=== PATIENT | male | born 1970 | race Caucasian/White ===

== ENCOUNTER 2021-05-21 05:37 | Outpatient (CLI) | payer OTHER ==
[~2021-05-21] VITALS: Ht 188 cm; Wt 93.5 kg
[2021-05-21] MEDS ORDERED: AMLO-251 PO (11:20)
== END 2021-05-21 11:27 | disposition home or self-care (01) ==
LOC: PREOP 05:37
PROVIDERS: ATTEND Surgery
DX: Z01.818 Encounter for other preprocedural examination (principal)

== ENCOUNTER 2021-06-02 09:00 | Day surgery (SDC) | payer OTHER ==
[~2021-06-02] VITALS: Ht 188 cm; Wt 93.5 kg
[2021-06-02] VITALS (7 sets, daily range): BP systolic 115–149; BP diastolic 69–99
[~2021-06-02 09:00] MED LIST: AMLO-251 PO
[2021-06-02] MEDS ORDERED: LACTATED RINGERS 1,000 ML IV ONE (09:02)
[2021-06-02] MEDS ORDERED: HURRICAINE EXT TUBE (BENZOCAINE) ONE (09:03)
[2021-06-02] MEDS ORDERED: LACTATED RINGERS 1,000 ML IV STA (09:03)
[2021-06-02] MEDS ORDERED: HURRICAINE EXT TUBE (BENZOCAINE) XX PRN (09:15)
--- NOTE | 2021-06-02 09:25 | Progress Note-Pre Operative ---
Pre-Operative Progress Note H&P Reviewed The H&P was reviewed, patient examined and no changes noted. Date Seen by Provider: Jun 02, 2021 Time Seen by Provider: 09:24 Date H&P Reviewed: Jun 02, 2021 Time H&P Reviewed: 09:24 Pre-Operative Diagnosis: Screening colonoscopy JENNYFER WALKER DO Jun 02, 2021 09:25
[2021-06-02] MEDS ORDERED: MIDAZOLAM 2 MG/2 ML (VERSED) VIAL ONE (09:29)
[2021-06-02] MEDS ORDERED: PROPOFOL INJECTION 50 ML IV ONE (09:29)
--- NOTE | 2021-06-02 09:59 | Discharge Inst-Simple/Standard ---
Discharge Inst-Standard Patient Instructions/Follow Up Plan of Care/Instructions/FU: 2 weeks Mary Activity as Tolerated: Yes Discharge Diet: Regular Diet JENNYFER WALKER DO Jun 02, 2021 09:59
--- NOTE | 2021-06-02 10:04 | Progress Note-Post Operative ---
Post-Operative Progess Note Surgeon (s)/Seed Cone Picker (s) Surgeon JENNYFER WALKER DO Seed Cone Picker: none Pre-Operative Diagnosis Screening colonoscopy Post-Operative Diagnosis Sigmoid polyps x4 Procedure & Operative Findings Date of Procedure 06/02/21 Procedure Performed/Findings Colonoscopy with cold biopsy polypectomy x4 Anesthesia Type per RAMP AND CARGO SUPERVISOR Estimated Blood Loss Estimated blood loss (mL): none Specimens/Packing Specimens Removed Sigmoid polyps x4 JENNYFER WALKER DO Jun 02, 2021 10:04
--- NOTE | 2021-06-02 11:29 | OPERATIVE REPORT ---
DATE OF SERVICE: 06/02/2021 PREOPERATIVE DIAGNOSIS: Screening colonoscopy. POSTOPERATIVE DIAGNOSIS: Colon polyps, sigmoid x4. PROCEDURE: Colonoscopy with cold biopsy polypectomy x4. SURGEON: Jennyfer Hernandez DO ANESTHESIA: Per SPOOLING OPERATOR. ESTIMATED BLOOD LOSS: None. COMPLICATIONS: None. INDICATIONS: The patient is a 51-year-old male needing screening colonoscopy. He understands risks and benefits of procedure and wishes to proceed. Consent was signed in the chart. DESCRIPTION OF PROCEDURE: The patient was taken to endoscopy suite, placed in left lateral recumbent position. Timeout was performed. Digital rectal exam was performed. No palpable polyps, masses or ulcerations. Scope was inserted in the rectum and advanced all the way to cecum with minimal difficulty. Prep was adequate. Scope was slowly retracted back. No polyps, masses or ulcerations within the cecum, ascending, transverse and descending colon. In sigmoid colon, four very small polyps were present, which a was also utilized for visualization, which cold biopsy polypectomy was performed. Scope was then slowly retracted back into the rectum, where it was also retroflexed noting no other pathology. Scope was returned to its normal position, slowly withdrawn until completely removed. The patient tolerated the procedure well without any complications, taken to recovery room in stable condition. RECOMMENDATIONS: The patient will have repeat colonoscopy in 5 years. Any issues before that be seen at that time. The patient will follow up in the office to discuss pathology results. Job ID: [id number] DocumentID: [id number] Dictated Date: 06/02/2021 10:04:40 Nuclear Reactor Engineer Date: 06/02/2021 11:28:30 Dictated By: JENNYFER HERNANDEZ DO
--- NOTE | 2021-06-02 14:50 | Anesthesia-General Post-Op ---
MAC Patient Condition Mental Status/LOC: Same as Preop Cardiovascular: Satisfactory Nausea/Vomiting: Absent Respiratory: Satisfactory Pain: Controlled Complications: Absent Post Op Complications Complications None Follow Up Care/Instructions Patient Instructions None needed. Anesthesiology Discharge Order Discharge Order Patient is doing well, no complaints, stable vital signs, no apparent adverse anesthesia problems. No complications reported per nursing. YOLANDA SIMPSON CRNA Jun 02, 2021 14:50
== END 2021-06-02 11:10 | disposition home or self-care (01) ==
LOC: ENDO 09:00
PROVIDERS: ATTEND Surgery
DX: Z12.11 Encounter for screening for malignant neoplasm of colon (principal); K63.5 Polyp of colon; K21.9 Gastro-esophageal reflux disease without esophagitis

== ENCOUNTER → 2022-05-04 | Outpatient (CLI) | payer OTHER | LOC: CARD 10:49 | PROVIDERS: ATTEND Internal Medicine Cardiovascular Disease | DX: I34.0 Nonrheumatic mitral (valve) insufficiency (principal); I25.10 Atherosclerotic heart disease of native coronary artery without angina pectoris; I11.9 Hypertensive heart disease without heart failure | CPT/HCPCS: 93306 ==

== ENCOUNTER → 2022-05-24 | Outpatient (CLI) | payer OTHER ==
[~2022-05-24] VITALS: Ht 187 cm; Wt 91.0 kg
[~2022-05-24] MED LIST changes: +REGADENOSON 0.4 MG/5 ML SYR (LEXISCAN) IV ONE
[2022-05-24] MEDS: CATHETER FLUSH 10 ML SYR IVP PRN ×2 (08:05→09:25)
[2022-05-24 09:23] VITALS: BP 144/90
--- NOTE | 2022-05-24 11:08 | Cardiology Stress Test Report ---
Stress Test Report Date of Procedure/Referring: Date of Procedure: May 24, 2022 PCP Marko Cardozo MD Admitting Physician Admitting Physician: Attending Physician: Emilee Fermin MD Indications: CP Baseline Heart Rate: 58 Baseline Blood Pressure: Blood Pressure Systolic: 144 Blood Pressure Diastolic: 90 Baseline Vitals Vital Signs Date Time Temp Pulse Resp B/P (MAP) Pulse Ox O2 Delivery O2 Flow Rate FiO2 05/24/22 09:23 53 16 144/90 (108) 98 Room Air Baseline EKG: Baseline EKG: NSR Summary After explaining the procedure to the patient, he signed a consent and then brought to the stress nuclear laboratory. Patient received 0.4 mg Lexiscan for stress test, ECG, heart rate and blood pressure were monitored continuously. Resting and stress dose of radio tracer were injected, imaging was acquired and reviewed in short axis, horizontal long axis and vertical long axis views. TID: 1.08 SSS: 3 SDS: 2 EF: 60 Patient tolerated Lexiscan well Mild reversible ischemia involving the mid to apical anterior wall Normal left ventricular size, ejection fraction 60% CC EMILEE Chu MD May 24, 2022 11:08
== END ==
LOC: CARD 07:46
PROVIDERS: ATTEND Internal Medicine Cardiovascular Disease
DX: I25.89 Other forms of chronic ischemic heart disease (principal); I10 Essential (primary) hypertension; I25.10 Atherosclerotic heart disease of native coronary artery without angina pectoris
CPT/HCPCS: 78452; 93017; A9502

== ENCOUNTER 2022-06-02 10:00 | Day surgery (SDC) | payer OTHER ==
[2022-06-02] VITALS (8 sets, daily range): BP systolic 94–134; BP diastolic 71–97
[~2022-06-02] VITALS: Ht 187 cm; Wt 94.6 kg
--- NOTE | 2022-06-02 08:38 | Diagnostic Imaging Report ---
Indication: Pre-heart catheterization. Time of Exam: 8:15 AM No prior studies are available for comparison. Findings: The heart size is normal. The pulmonary vascularity is unremarkable. The lungs are clear. No infiltrate, effusion or pneumothorax is detected. Impression: No acute cardiopulmonary process is detected. Dictated by: Dictated on workstation # [id number]
[2022-06-02 09:06] LABS: HEMATOCRIT 45 % (40-54); HEMOGLOBIN 16.3 g/dL (13.3-17.7); MEAN CORPUSCULAR HEMOGLOBIN 32 pg (25-34); MEAN CORPUSCULAR HGB CONC 37 g/dL (32-36); MEAN CORPUSCULAR VOLUME 87 fL (80-99); PLATELET COUNT 209 10^3/uL (130-400); WHITE BLOOD COUNT 6.5 10^3/uL (4.3-11.0)
[2022-06-02 09:09] LABS: BILIRUBIN,URINE NEGATIVE (NEGATIVE); CLARITY,URINE CLEAR; COLOR,URINE YELLOW; GLUCOSE, URINE (UA) NEGATIVE (NEGATIVE); KETONES,URINE NEGATIVE (NEGATIVE); LEUKOCYTE ESTERASE ,URINE NEGATIVE (NEGATIVE); NITRITE,URINE NEGATIVE (NEGATIVE); PROTEIN,URINE NEGATIVE (NEGATIVE)
--- NOTE | 2022-06-02 09:09 | Cardiac Procedure Note-CS/ASA ---
Pre-Procedure Note Pre-Op Procedure Note Date of Available H&P: May 25, 2022 Date H&P Reviewed: Jun 02, 2022 Time H&P Reviewed: 09:09 History & Physical: H&P Reviewed, Patient Examed, No changes noted Pre-Operative Diagnosis: CAD Moderate Sedation PreProcedure Time 09:09 ASA Score 3 Airway Lungs Heart ASA score ASA 1: a normal healthy patient ASA 2: a patient with a mild systemic disease (mid diabetes, controlled hypertension, obesity ASA 3: a patient with a severe systemic disease that limits activity (angina, COPD, prior Myocardial infarction) ASA 4: a patient with an incapacitating disease that is a constant threat to life (CHF, renal failure) ASA 5: a moribund patient not expected to survive 24 hrs. (ruptured aneurysm) ASA 6: a declared brain- patient whose organs are being harvested. For emergent operations, add the letter E after the classification Mallampati Classification Grade 3 Sedation Plan Analgesia, Amnesia, Plan communicated to team members, Discussed options with patient/fam, Discussed risks with patient/fam The patient is an appropriate candidate to undergo the planned procedure, sedation, and anesthesia. The patient immediately re-assessed prior to indication. EMILEE NAPIER MD Jun 02, 2022 09:09
[2022-06-02 09:19] LABS: BACTERIA,URINE TRACE /HPF; RBC,URINE RARE /HPF; SQUAMOUS EPITHELIAL CELL,UR RARE /HPF
[2022-06-02 09:23] LABS: PROTHROMBIN TIME PATIENT 13.9 SEC (12.2-14.7)
[2022-06-02 09:45] LABS: ALBUMIN 4.5 GM/DL (3.2-4.5); BILIRUBIN,TOTAL 0.5 MG/DL (0.1-1.0); CALCIUM 9.6 MG/DL (8.5-10.1); CREATININE SERUM 1.09 MG/DL (0.60-1.30)
[~2022-06-02 10:00] MED LIST changes: +AMLO-250 PO; +DIPH25TA2 PO; +HEParin (CATH LAB) 2,000 ML IV ONE; +HEParin 1000 UNIT/ML (10ML VIAL) FOR BOLUS ONE; +IBUP-2473 PO; +LIDOCAINE 1% INJ 20 ML VIAL ONE; +LOSA100T57 PO; +MIDAZOLAM 5 MG/5 ML (VERSED) VIAL ONE; +NEBI5TAB8 PO; +NITRO DRIP 25000 MCG/D5W 250 ML IV ONE; +NS IV 1000 ML 1,000 ML IV ONE; +NS IV 1000 ML 1,000 ML ONE; -REGADENOSON 0.4 MG/5 ML SYR (LEXISCAN) IV ONE; +TADA5TAB4 PO; +VERAPAMIL 5 MG/2 ML (CALAN) VIAL IV ONE; +fentaNYL INJ 100 MCG/2 ML AMP ONE
--- NOTE | 2022-06-02 10:33 | Discharge Inst-Post CATH ---
Discharge Inst-CATH/EP Problems Reviewed?: Yes Post Cardiac Cath/EP D/C Inst Follow Up/Plan Appointment with Dr. Fermin's office in 2 to 4 weeks <b>CARDIAC CATH/EP PROCEDURE DISCHARGE INSTRUCTIONS</b> ACTIVITY * Go Home directly and rest. * Limit activity of the leg (or wrist if it was used) for 7 days including aer obics, swimming, jogging, bicycling, etc. * Restrict stair-climbing for 7 days if possible, if not, climb up with your non-cath leg, then bring together on the same step. * Avoid lifting, pushing, pulling or excessive movement of the affected extremi ty for 7 days. * Customary sexual activity may be resumed after 2 days-use caution not to use a position that strains or causes pain to the affected extremity. * No driving for 24 hours. * NO SMOKING. * Avoid straining for bowel movements for 7 days. * Gentle walking on level ground is allowed. * Returning to work will depend on the type of procedure and the results. Your doctor will discuss this with you. CALL YOUR DOCTOR FOR ANY OF THE FOLLOWING: *If bleeding from the puncture site occurs- Apply gentle pressure to site with clean cloth and call your doctor or EMS. * If a knot or lump forms under the skin, increases in size, or causes pain. * If bruising appears to be worsening or moving further down your leg instead of disappearing. * Temperature above 101 F. CARE OF YOUR GROIN INCISION; * Bruising or purple discoloration of the skin near the puncture site is common. * You may shower only, no bathtub bathing for 5 days. Be careful to avoid slipping as your leg may feel stiff. * If a closure device was used on your femoral artery, please see the attached guide regarding care of the device and your leg. * Leave dressing on FOR 24 hours. CARE OF YOUR WRIST INCISION; * Bruising or purple discoloration of the skin near the puncture site is common. * You may shower. * DO NOT submerge wrist. * Leave dressing on FOR 24 hours. EMILEE FERMIN MD Jun 02, 2022 10:33
--- NOTE | 2022-06-02 10:37 | Cardiac Cath Report ---
Cardiac Cath Report Physician (s)/Natural Gas Treating Unit Operator (s) Physician EMILEE NAPIER MD Pre-Procedure Diagnosis Pre-Procedure Diagnosis: CAD Post-Procedure Note Procedure Start Date: Jun 02, 2022 Name of Procedure: Left heart catheterization Left ventriculogram Aortic arch angiogram Findings/Procedure Note PROCEDURE NOTE: 52 years old gentleman reported that he has history of aortic valve surgery as a baby. Has been having chest pain and had an abnormal stress test, scheduled for cardiac catheterization possible PTCA. After explaining the procedure to the patient, all pros and cons were explained, all questions were answered. The patient signed the consent and then he was placed in the cardiac catheterization laboratory. Groin was prepped in SL fashion local anesthesia was used. Sheath placed in the right radial artery, Pepin catheter was advanced and crossed the aortic valve to the left ventricular cavity without any difficulties. No signs of previous cardiac surgeries were noted. Pressure was measured, pullback LV to aorta was done. Engaged the right and left coronary system, angiogram was done then I pulled the catheter back to the aortic arch and aortic arch angiogram was done. At the end of the procedure the sheath was removed. Vascular band was used FINDINGS: Hemodynamics LV 92/13, end-diastolic pressure of 13 Aorta 85/62 mean of 71 ANATOMY: Left Main is free of obstructive disease Left Anterior Descending is moderate in size slightly tortuous with no obstructive disease Left Circumflex is a large dominant artery, OM branches extended all the way to the apex with no obstructive disease Right Coronary Artery is a small nondominant artery with no obstructive disease LV Gram was done showing normal left ventricular size, normal contractility, ejection fraction 60% Aorta evaluation showed normal aortic arch, no dissection or aneurysm, normal origin of the brachiocephalic artery, left carotid and left subclavian arteries CONCLUSION: Large dominant circumflex artery with branches extended to the apex, no significant obstructive coronary artery disease Normal left ventricular size and systolic function, ejection fraction 60% No significant gradient across the aortic valve Normal aortic arch and great vessels of the neck No signs of previous cardiac surgery DISCUSSION AND RECOMMENDATION: Continue to modify risk factors and monitor as an outpatient Anesthesia Type: Conscious Sedation Estimated blood loss (mL): 10 ml Contrast Amount: 45 ml Total Radiation Dose: 340 mGy Post-Procedure Diagnosis Post-operative diagnosis: Chest pain Coronary artery disease Hypertension EMILEE NAPIER MD Jun 02, 2022 10:37
[2022-06-02] MEDS ORDERED: NS IV 1000 ML 1,000 ML IV SCH (10:45)
== END 2022-06-02 12:36 | disposition home or self-care (01) ==
LOC: CATH 10:00 → SDC 10:51 → CATH 12:36
PROVIDERS: ATTEND Internal Medicine Cardiovascular Disease
DX: I25.10 Atherosclerotic heart disease of native coronary artery without angina pectoris (principal); I10 Essential (primary) hypertension; I65.23 Occlusion and stenosis of bilateral carotid arteries; I34.0 Nonrheumatic mitral (valve) insufficiency; N52.9 Male erectile dysfunction, unspecified; Z79.899 Other long term (current) drug therapy; Z87.74 Personal history of (corrected) congenital malformations of heart and circulatory system
CPT/HCPCS: 71045; 80053; 80061; 81000; 85027; 85610; 85730; 87081; 93005; 93458; C1894; 36415